=== PATIENT | female | born 1990 | race American Indian/Alaskan Native ===

== ENCOUNTER 2017-06-14 18:52 | Emergency (ER) | payer MEDICAID ==
[2017-06-14 18:52] VITALS: BMI 29.4
[2017-06-14 18:57] VITALS: TEMP 97.9
--- NOTE | 2017-06-14 19:37 | C.PDOC ---
History Of Present Illness 26 yo female c/o body aches, fever and chills for 2 days. Notes some congestion and decrease appetite. Denies difficulty breathing or swallowing, chest pain, neck pain , n/v, or abdominal pain. Pt took advil a few hours ago. Time Seen by Provider: 06/14/17 19:17 Chief Complaint (Nursing): Flu-like Symptoms History Per: Patient History/Exam Limitations: no limitations Onset/Duration Of Symptoms: Days (yesterday) Current Symptoms Are (Timing): Still Present Past Medical History Vital Signs: Last Vital Signs Temp 97.9 F 06/14/17 18:55 Pulse 82 06/14/17 19:56 Resp 16 06/14/17 19:56 BP 123/66 06/14/17 19:56 Pulse Ox 98 06/14/17 19:56 Surgical History: - [facility] Procedures COMPRESSION OF ABDOMINAL WALL USING PRESSURE DRESSING (03/28/15) EXTIRPATION OF MATTER FROM ABD SUBCU/FASCIA, OPEN APPROACH (03/28/15) IRRIGATION OF SKIN AND MUCOUS MEMBRANES USING IRRIGAT (03/28/15) REPAIR PERINEUM SUBCU/FASCIA, OPEN APPROACH (03/28/15) Family History: States: Unknown Family Hx - Social History Hx Tobacco Use: No Hx Alcohol Use: No Hx Substance Use: No - Immunization History Hx Tetanus Toxoid Vaccination: No Hx Influenza Vaccination: No Hx Pneumococcal Vaccination: No Review Of Systems Except As Marked, All Systems Reviewed And Found Negative. Constitutional: Positive for: Fever, Chills Physical Exam - Physical Exam Appears: Well, Non-toxic, No Acute Distress Skin: Normal Color, Warm, Dry Head: Atraumatic, Normacephalic Eye(s): bilateral: Normal Inspection, PERRL, EOMI Ear(s): Bilateral: Normal Nose: Normal Oral Mucosa: Moist Throat: Normal, No Erythema, No Exudate, No Drooling Neck: Normal, Normal ROM, Supple ((-) brudzinski's sign and kernig's sign) Lymphatic: Normal Exam Chest: Symmetrical Cardiovascular: Rhythm Regular Respiratory: Normal Breath Sounds, No Accessory Muscle Use Gastrointestinal/Abdominal: Normal Exam Back: Normal Inspection Extremity: Normal ROM Neurological/Psych: Oriented x3, Normal Speech ED Course And Treatment O2 Sat by Pulse Oximetry: 100 Progress Note: Motrin and tamiflu ordered. Discussed symptomatic treatment and follow up with PMD in 1-2 days. Disposition - Disposition Referrals: Melissa Kumari MD [Non-Staff] - Disposition: HOME/ ROUTINE Disposition Time: 19:36 Condition: STABLE Additional Instructions: Follow up with your primary medical doctor or clinic in 2-5 days for further evaluation. Take medications as prescribed. Return to the emergency department at any time if symptoms persist or worsen. Prescriptions: Ibuprofen [Motrin] 600 mg PO Q6 PRN #20 tab PRN Reason: Pain, Mild (1-3) Oseltamivir Phosphate [Tamiflu] 75 mg PO BID #10 capsule Instructions: Influenza (ED) Forms: [facility] (Brazilian) - Clinical Impression Clinical Impression: Viral illness
[2017-06-14 19:56] VITALS: BP 123/66; PULSE 82; RESP 16
[2017-06-14 20:39] VITALS: O2SAT 100
== END 2017-06-14 19:55 | disposition home or self-care (01) ==
LOC: C.ER 18:52
DX: B34.9 Viral infection, unspecified (principal)